=== PATIENT | female | born 1980 | race Caucasian/White ===

== ENCOUNTER 2019-12-08 18:31 | Emergency (ER) | payer BC, SELFPAY ==
--- NOTE | 2019-12-08 19:14 | ED.FEMALEGU ---
HPI - Female Genitourinary General Chief complaint: Urogenital-Female Stated complaint: Abdominal Pain Time Seen by Provider: 12/08/19 19:14 History of Present Illness HPI Narrative: patient presents with strong odor to urine. upper abdominal pressure no back or flank pain. No gross hematuria no vaginal discharge no concern for sti . Patient states she is been adjusting her diet lately and certain foods make her right upper quadrant abdominal pain worse. Patient states is been going on for the last month. Patient denies any pain at present. Patient denies any fever no diarrhea no constipation no nausea. MD elicited complaint: dysuria and UTI Related Data Home Medications Medication Instructions Recorded Confirmed Cymbalta 12/08/19 infliximab [Remicade] mg IV 12/08/19 levothyroxine 100 mcg PO DAILY 12/08/19 12/08/19 Allergies Allergy/AdvReac Type Severity Reaction Status Date / Time No Known Allergies Allergy Verified 12/08/19 19:33 Review of Systems Review of Systems: Narrative: CONSTITUTIONAL: Denies fever, chills, or sweats. EYES: Denies visual changes, redness, or discharge. ENT: Denies rhinorrhea, congestion, sore throat, or otalgia. CARDIOVASCULAR: Denies chest pain, palpitations, or edema. RESPIRATORY: Denies cough or dyspnea. GASTROINTESTINAL: Denies nausea, vomiting, or diarrhea. GENITOURINARY: Reports dysuria denies hematuria. SKIN: Denies rash or itching. MUSCULOSKELETAL: Denies back pain, joint pain, or myalgia. NEUROLOGIC: Denies headache, numbness, or weakness. PSYCHIATRIC: Denies anxiety or depression. [facility] Past Medical History Medical History Psoriatic arthritis Comments At time of signature, agree with nursing past medical, surgical, social and family history. There is no relevant family history pertinent to the presenting complaint Exam Narrative: Exam Narrative: GENERAL: Well-appearing, well-nourished, and in no acute distress. HEAD: Normocephalic, atraumatic. EYES: PERRLA and EOMI. ENT: Nares clear, no rhinorrhea or epistaxis. Mucous membranes moist. NECK: Supple. CHEST: Clear to auscultation. No respiratory distress. HEART: Regular rate and rhythm. No murmur heard. Normal peripheral pulses. ABDOMEN: Soft, nontender, nondistended, normal active bowel sounds. EXTREMITIES: Normal range of motion. No edema. SKIN: Warm, dry, no rash. NEURO: No focal deficits. Alert and oriented x3. [place] Coma Scale Eye Opening: Spontaneous 4 [place] Coma Scale Motor: Obeys Commands 6 [place] Coma Scale Verbal: Oriented 5 [place] Coma Scale Total 15 Course Vital Signs Vital signs: Vital Signs Temperature 36.8 C 12/08/19 19:15 Pulse Rate 69 12/08/19 19:15 Respiratory Rate 16 12/08/19 19:15 Blood Pressure 127/63 12/08/19 19:15 Pulse Oximetry 100 12/08/19 19:15 Temperature 36.8 C 12/08/19 19:15 Pulse Rate 69 12/08/19 19:15 Respiratory Rate 16 12/08/19 19:15 Blood Pressure 127/63 12/08/19 19:15 Pulse Oximetry 100 12/08/19 19:15 Critical dx considered and discussed with pt. Educated patient on red flag s/s and to go to ED if s/s occur. Discussed with pt when to return to [facility] or primary care provider. Pt gave verbal understanding, all questions were answered, and pt was agreeable to plan Patient politely declines transfer to ed at this time. Patient states she has no abdominal pain at present. Patient states if pain returns she will go to er for evaluation and treatment. Patietn states she will follow up with PCP as soon as possible for outpatient testing. MDM - Female Genitourinary Differential Diagnosis Differential diagnosis: Likely urinary tract infection, bacterial vaginosis, trichomoniasis, vaginitis, ruptured ovarian cyst, cyst of Bartholin's gland and cystitis Lab Data Labs: Urine Glucose Negative Reference Range: Negative Urine Bilirubin
[2019-12-08 19:15] VITALS: BP 127/63; PULSE 69; RESP 16; TEMP 36.8; O2SAT 100
== END 2019-12-08 19:40 | disposition home or self-care (01) ==
PROVIDERS: Emergency Provider Nurse Practitioner Family
DX: R10.11 Right upper quadrant pain (principal)
CPT/HCPCS: 81003; 87086; 99213; G0463

== ENCOUNTER 2020-01-25 18:56 | Emergency (ER) | payer BC, SELFPAY ==
[2020-01-25 19:03] VITALS: BP 120/66; PULSE 73; RESP 18; TEMP 37.3; O2SAT 100
--- NOTE | 2020-01-25 19:27 | ED.FEMALEGU ---
HPI - Female Genitourinary General Chief complaint: Urogenital-Female Stated complaint: UTI Time Seen by Provider: 01/25/20 19:27 Source: patient and RN notes reviewed History of Present Illness HPI Narrative: Patient is a 39-year-old female presents the urgent care with complaints of urinary frequency, burning, urgency. Patient states that started approximately 2 to 3 days ago and she does have a history of UTIs. Patient states that she has been taking Azo and Tylenol for her symptoms. Denies of any fever, nausea, vomiting, abdominal pain. No other acute complaints. No acute distress noted. Patient read the plan of care. Related Data Home Medications Medication Instructions Recorded Confirmed infliximab [Remicade] mg IV 12/08/19 leflunomide 10 mg PO DAILY 01/25/20 01/25/20 levothyroxine 100 mcg PO DAILY 01/25/20 01/25/20 levothyroxine 100 mcg PO DAILY 01/25/20 01/25/20 pantoprazole 40 mg PO HS 01/25/20 01/25/20 Allergies Allergy/AdvReac Type Severity Reaction Status Date / Time No Known Allergies Allergy Verified 01/25/20 19:31 Review of Systems Review of Systems: Narrative: CONSTITUTIONAL: Denies fever, chills, or sweats. EYES: Denies visual changes, redness, or discharge. ENT: Denies rhinorrhea, congestion, sore throat, or otalgia. CARDIOVASCULAR: Denies chest pain, palpitations, or edema. RESPIRATORY: Denies cough or dyspnea. GASTROINTESTINAL: Denies abdominal pain, nausea, vomiting, or diarrhea. GENITOURINARY: Reports of frequency, urgency, dysuria, intermittent suprapubic pressure SKIN: Denies rash or itching. MUSCULOSKELETAL: Denies back pain, joint pain, or myalgia. NEUROLOGIC: Denies headache, numbness, or weakness. All other systems reviewed are negative, except as documented in HPI. PMFSH Comments At the time of my signature, I reviewed and agree with the nursing past medical, surgical, social, and family history. There is no relevant family history pertinent to the patient complaint. Exam Narrative: Exam Narrative: GENERAL: This is a well-nourished, well-developed patient, in no apparent distress. HEAD: normocephalic, atraumatic. EYES: PERRL. Sclera clear/white. Vision is grossly intact. EARS: External ears normal NOSE: External nose normal with no obvious nasal discharge THROAT: Mucous membranes moist NECK: Neck supple CARDIOVASCULAR: Regular rate and rhythm without murmurs, gallops, or rubs. RESPIRATORY: Clear to auscultation. Breath sounds equal bilaterally. No wheezes, rales, or rhonchi. GASTROINTESTINAL: Abdomen soft, non-tender, nondistended. SKIN: warm, intact with no suspicious lesions or rash, good texture and turgor. NEURO: awake, alert, and oriented to person, place and time. There were no obvious focal neurologic abnormalities. EXTREMITIES: No clubbing, cyanosis, or edema. BACK: Negative CVA tenderness Course Vital Signs Vital signs: Vital Signs Temperature 99.2 F 01/25/20 19:03 Pulse Rate 73 01/25/20 19:03 Respiratory Rate 18 01/25/20 19:03 Blood Pressure 120/66 01/25/20 19:03 Pulse Oximetry 100 01/25/20 19:03 Temperature 99.2 F 01/25/20 19:03 Pulse Rate 73 01/25/20 19:03 Respiratory Rate 18 01/25/20 19:03 Blood Pressure 120/66 01/25/20 19:03 Pulse Oximetry 100 01/25/20 19:03 Reviewed MDM - Female Genitourinary MDM Narrative Medical decision making narrative: Reviewed lab results with the patient. She is aware that urine does not appear to be indicative for UTI at this time. We will culture the urine and call her if medication is necessary based on culture results. Advised the patient to continue using Azo if necessary. Use Tylenol as needed for pain. Increase water intake and avoid sugary and caffeinated drinks. Call the facility within 72 hours if you do not hear back regarding culture results. Follow-up with your PCP within 2 to 5 days or for worsening symptoms or failure to improve. Differential Diagnosis Differential diagnosis:
== END 2020-01-25 19:37 | disposition home or self-care (01) ==
PROVIDERS: Emergency Provider Nurse Practitioner Family; PCP Family Medicine
DX: R30.0 Dysuria (principal); K21.9 Gastro-esophageal reflux disease without esophagitis; L40.50 Arthropathic psoriasis, unspecified
CPT/HCPCS: 81003; 87077; 87086; 87088; 87186; 99213; G0463

== ENCOUNTER 2020-02-25 10:42 | Emergency (ER) | payer BC, SELFPAY ==
[2020-02-25 10:55] VITALS: BP 103/60; PULSE 74; RESP 20; TEMP 36.8; O2SAT 99
--- NOTE | 2020-02-25 11:16 | ED.GENADULT ---
HPI - General Adult General Chief complaint: Upper Respiratory Infection Stated complaint: fever/severe headache/body aches Time Seen by Provider: 02/25/20 11:17 Source: patient and RN notes reviewed Mode of arrival: ambulatory Limitations: no limitations History of Present Illness HPI narrative: This is a 39 years old female presented office for evaluation of possible sinus infection. She has been battling with sinus congestion off and on for the last week however she did not run a fever until last night. Fever went up to 100.3 this morning which she took Advil prior to arrival. Symptoms include head congestion, stuffy nose, postnasal drip, and feeling fatigued. Symptoms reminiscent her previous sinus infection. Denies exposures to sick contact or known contact with COVID people. She is on Remicade for her RA. She was a former smoker, quit 6 years ago she used to smoke 1 pack. She is a line construction supervisor. Related Data Home Medications Medication Instructions Recorded Confirmed infliximab [Remicade] mg IV 12/08/19 leflunomide 10 mg PO DAILY 01/25/20 02/25/20 levothyroxine 100 mcg PO DAILY 01/25/20 02/25/20 pantoprazole 40 mg PO HS 01/25/20 02/25/20 cetirizine [Zyrtec] 10 mg PO DAILY 02/25/20 02/25/20 Allergies Allergy/AdvReac Type Severity Reaction Status Date / Time No Known Allergies Allergy Verified 01/25/20 19:31 Review of Systems Review of Systems: Narrative: CONSTITUTIONAL: Reports fever, bodyache EYES: Denies visual changes ENT: Reports congestion, sore throat. Denies otalgia. CARDIOVASCULAR: Denies chest pain. RESPIRATORY: Denies dyspnea, wheezing. Reports cough GASTROINTESTINAL: Denies abdominal pain, nausea, vomiting GENITOURINARY: Denies urinary symptoms SKIN: Denies rash MUSCULOSKELETAL: Denies acute back pain NEUROLOGIC: Denies lightheaded PMFSH Past Medical History Medical History Anxiety Endometriosis Psoriatic arthritis Surgical History Surgical History Hx of oophorectomy 2010 Hx of spinal fusion L5-s1 in 10/2017 Family History Family History Other Diabetes mellitus Heart disease Social History Social History (Updated 02/25/20 @ 11:29 by STONE Chalres) Social History: used to smoke 1pack Smoking status: Former smoker Tobacco type: cigarettes Second hand tobacco smoke exposure: Yes Comments At time of signature, I agree with nursing past medical, surgical, social and family history. There is no relevant family history pertinent to the presenting complaint. Exam Narrative: Exam Narrative: GENERAL: This is a well-nourished, well-developed patient, in no apparent distress. EYES: PERRL. Sclera clear/white. Vision is grossly intact. EARS: External ears normal, auditory canals clear and without drainage, TMs normal without perforation, however there are fluid bubbles in both TM. Hearing grossly intact. NOSE: External nose normal with no obvious nasal discharge, nares without redness, no rhinorrhea. THROAT: Mucous membranes moist, posterior pharynx slight pink with drainage. Sinus tenderness to palpation NECK: Neck supple, non-tender without lymphadenopathy, masses or thyromegaly. CARDIOVASCULAR: Regular rate and rhythm without murmurs, gallops, or rubs. RESPIRATORY: Clear to auscultation. Breath sounds equal bilaterally. No wheezes, rales, or rhonchi. GASTROINTESTINAL: Abdomen soft, non-tender, nondistended. Bowel sounds are active. No hepato-splenomegaly, or palpable masses. No guarding. SKIN: warm, intact with no suspicious lesions or rash, good texture and turgor. NEURO: awake, alert, and oriented to person, place and time. There were no obvious focal neurologic abnormalities. Steady gait [place] Coma Scale Eye Opening: Spontaneous 4 [place] Coma Scale Motor: Obeys Commands 6 [place]
== END 2020-02-25 11:30 | disposition home or self-care (01) ==
PROVIDERS: Emergency Provider Nurse Practitioner; PCP Family Medicine
DX: J06.9 Acute upper respiratory infection, unspecified (principal); J01.80 Other acute sinusitis; B96.89 Other specified bacterial agents as the cause of diseases classified elsewhere; J00 Acute nasopharyngitis [common cold]; Z87.891 Personal history of nicotine dependence
CPT/HCPCS: 99213; G0463

== ENCOUNTER 2020-04-03 19:19 | Emergency (ER) | payer BC, SELFPAY ==
[2020-04-03 19:25] VITALS: BP 120/68; PULSE 59; RESP 16; TEMP 36.7; O2SAT 100
--- NOTE | 2020-04-03 19:34 | ED.BACK ---
HPI - Back Pain/Injury General Chief Complaint: Back Pain/Injury Stated Complaint: back pain Time Seen by Provider: 04/03/20 19:35 Source: patient and RN notes reviewed History of Present Illness HPI Narrative: Patient is a 39-year-old female who presents the urgent care with complaints of acute on chronic back pain. Patient states that she has chronic back pain and 2 spinal fusions. Patient states that she has been doing really good for a long time and stopped her steroid injections . Patient states that she has spoke with her spinal doctor regarding possible restart of the steroid injections. 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 Patient denies any known fall trauma or new injury. Patient denies any urinary symptoms. States that most of the pain is just in the lumbar region but does have intermittent shooting pains down bilateral legs. Patient denies any loss of bowel or bladder. Patient has been using Tylenol and Advil without much relief. No other acute complaints. No acute distress noted. Patient read the plan of care. Related Data Home Medications Medication Instructions Recorded Confirmed infliximab [Remicade] mg IV 12/08/19 leflunomide 10 mg PO DAILY 01/25/20 02/25/20 levothyroxine 100 mcg PO DAILY 01/25/20 04/03/20 Allergies Allergy/AdvReac Type Severity Reaction Status Date / Time No Known Allergies Allergy Verified 01/25/20 19:31 Review of Systems Review of Systems: Narrative: CONSTITUTIONAL: Denies fever, chills, or sweats. EYES: Denies visual changes, redness, or discharge. ENT: Denies rhinorrhea, congestion, sore throat, or otalgia. CARDIOVASCULAR: Denies chest pain, palpitations, or edema. RESPIRATORY: Denies cough or dyspnea. GASTROINTESTINAL: Denies abdominal pain, nausea, vomiting, or diarrhea. GENITOURINARY: Denies dysuria or hematuria. SKIN: Denies rash or itching. MUSCULOSKELETAL: Reports of low back pain NEUROLOGIC: Denies headache, numbness, or weakness. All other systems reviewed are negative, except as documented in HPI. [facility] Social History Social History (Updated 02/25/20 @ 11:29 by STONE Charles) Social History: used to smoke 1pack Smoking status: Former smoker Tobacco type: cigarettes Second hand tobacco smoke exposure: Yes Comments At the time of my signature, I reviewed and agree with the nursing past medical, surgical, social, and family history. There is no relevant family history pertinent to the patient complaint. Exam Narrative: Exam Narrative: GENERAL: This is a well-nourished, well-developed patient, in no apparent distress. HEAD: normocephalic, atraumatic. EYES: PERRL. Sclera clear/white. Vision is grossly intact. EARS: External ears normal NOSE: External nose normal with no obvious nasal discharge, nares without redness, no rhinorrhea. THROAT: Mucous membranes moist NECK: Neck supple SKIN: warm, intact with no suspicious lesions or rash, good texture and turgor. NEURO: awake, alert, and oriented to person, place and time. There were no obvious focal neurologic abnormalities. EXTREMITIES: No clubbing, cyanosis, or edema. BACK: Moderate diffuse lumbar tenderness with negative bilateral SLE Course Vital Signs Vital signs: Vital Signs Temperature 98.1 F 04/03/20 19:25 Pulse Rate 59 L 04/03/20 19:25 Respiratory Rate 16 04/03/20 19:25 Blood Pressure 120/68 04/03/20 19:25 Pulse Oximetry 100 04/03/20 19:25 Temperature 98.1 F 04/03/20 19:25 Pulse Rate 59 L 04/03/20 19:25 Respiratory Rate 16 04/03/20 19:25 Blood Pressure 120/68 04/03/20 19:25 Pulse Oximetry 100 04/03/20 19:25 Reviewed MDM - Back Pain/Injury MDM Narrative Medical decision making narrative: Advised the patient to complete steroid regimen as prescribed. The taper will be longer than usual considering the chronic back pain. Make sure to eat and drink with the medication.
== END 2020-04-03 19:49 | disposition home or self-care (01) ==
PROVIDERS: Emergency Provider Nurse Practitioner Family; PCP Family Medicine
DX: M54.5 Low back pain (principal); G89.29 Other chronic pain; Z98.1 Arthrodesis status; Z87.891 Personal history of nicotine dependence
CPT/HCPCS: 99213; G0463

== ENCOUNTER 2021-01-13 10:03 | Emergency (ER) | payer BC, SELFPAY ==
--- NOTE | ~2021-01-13 | XR_ITS ---
EXAMINATION: [id number] DATE: 01/13/2021 11:10 INDICATION: Neck pain. TECHNIQUE: 4 views of cervical spine were obtained. COMPARISON: None. FINDINGS: There is kyphosis and 10 degrees dextroscoliosis of cervical spine. Vertebral body heights and intervertebral disc heights are normal. There is mild facet joint osteoarthritis at C7-T1. The un covertebral joints are normal. No central canal stenosis or prevertebral soft tissue swelling. IMPRESSION: 1. Kyphosis and dextroscoliosis of cervical spine. Reviewed, dictated and finalized at location A.
--- NOTE | ~2021-01-13 | XR_ITS ---
EXAMINATION: XR thoracic spine min 4V DATE: 01/13/2021 11:12 INDICATION: Thoracic back pain. TECHNIQUE: 3 views of thoracic spine on 4 radiographs were obtained. COMPARISON: Chest 2 views 11/25/2016 FINDINGS: There is 6 degrees levocurvature of upper thoracic spine. Vertebral body heights and interv ertebral disc heights are normal. There are endplate osteophytes at a few levels in thoracolumbar spi ne. IMPRESSION: 1. Mild thoracolumbar spondylosis. Reviewed, dictated and finalized at location A.
[2021-01-13 10:25] VITALS: BP 110/67; PULSE 63; RESP 18; TEMP 36.9; O2SAT 100
--- NOTE | 2021-01-13 10:26 | ED.GENADULT ---
HPI - General Adult General Chief complaint: Back Pain/Injury Stated complaint: shoulder/neck pain Time Seen by Provider: 01/13/21 10:26 Source: patient Mode of arrival: ambulatory Limitations: no limitations History of Present Illness HPI narrative: 40-year-old female patient presents to the [facility] with complaints of neck pain and right shoulder pain for the past 2 months. Patient has had history a spinal fusion from L5-S1 in the past. Patient denies any specific injury to the neck she is aware of. Patient states it started at the ball of the neck and now has radiated to the right shoulder. Patient states last night she noticed that her pinky ring finger middle finger went numb a couple times while she slept. Patient states she has been taking Tylenol, ibuprofen and naproxen for her pain which really has not been helping. Patient states she has also been trying to do some stretching exercises which has not been helping. Patient noticed that she has had some limitation to moving of her neck she states that it mostly hurts when looking up as well as looking down. Patient does have a history of psoriatic arthritis and has been off of her medication due to the fact that she lost her health insurance coverage. Related Data Home Medications Medication Instructions Recorded Confirmed gabapentin 300 mg PO DAILY 01/13/21 01/13/21 Allergies Allergy/AdvReac Type Severity Reaction Status Date / Time No Known Allergies Allergy Verified 01/13/21 10:29 Review of Systems Review of Systems: Narrative: CONSTITUTIONAL: Denies fever, chills, or sweats. EYES: Denies visual changes, redness, or discharge. ENT: Denies rhinorrhea, congestion, sore throat, or otalgia. CARDIOVASCULAR: Denies chest pain, palpitations, or edema. RESPIRATORY: Denies cough or dyspnea. GASTROINTESTINAL: Denies abdominal pain, nausea, vomiting, or diarrhea. GENITOURINARY: Denies dysuria or hematuria. SKIN: Denies rash or itching. MUSCULOSKELETAL: Denies back pain, joint pain, or myalgia. Positive neck and right shoulder pain x2 months NEUROLOGIC: Denies headache, numbness, or weakness. PSYCHIATRIC: Denies anxiety or depression. 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 Uterine ablation 2017 Psoriatic arthritis Surgical History Surgical History (Updated 01/13/21 @ 10:29 by STONE Jamil) History of orthopedic surgery L5-S1 fusion failed 06/2016, revision of L5-S1 fusion surgery 10/2017 Hx of oophorectomy 2010 Hx of spinal fusion L5-s1 in 10/2017 Family History Family History Other Diabetes mellitus Heart disease Social History Social History Social History: used to smoke 1pack Smoking status: Former smoker Tobacco type: cigarettes Second hand tobacco smoke exposure: Yes Comments At the time of my signature I agree with nursing past medical history, surgical, social, and family history. There is no relevant family history pertinent to the presenting complaint. Exam Narrative: Exam Narrative: GENERAL: Well-appearing, well-nourished, and in no acute distress. HEAD: Normocephalic, atraumatic. EYES: PERRLA and EOMI. ENT: Nares clear, no rhinorrhea or epistaxis. Mucous membranes moist. NECK: Supple, no lymphadenopathy. No surface trauma, no soft tissue or muscle tenderness or spasm noted. Trachea midline. No subq emphysema or crepitus. bony tenderness noted at the C6-and extending the neck. Only minimal discomfort with rotation to the left and right. Patient does have pain when, normal flexion, extension. CHEST: Clear to auscultation. No respiratory distress. HEART: Regular rate and rhythm. No murmur heard. Normal peripheral pulses. ABDOMEN: Soft, nontender, nondistended, n
== END 2021-01-13 11:33 | disposition home or self-care (01) ==
PROVIDERS: Emergency Provider Nurse Practitioner Family; PCP Family Medicine
DX: M47.812 Spondylosis without myelopathy or radiculopathy, cervical region (principal); Z87.891 Personal history of nicotine dependence; N80.9 Endometriosis, unspecified
CPT/HCPCS: 72040; 72074; 99213; G0463

== ENCOUNTER 2021-08-15 19:14 | Emergency (ER) | payer BC, SELFPAY ==
[2021-08-15 19:19] VITALS: BP 114/70; PULSE 70; RESP 16; TEMP 37; O2SAT 100
--- NOTE | 2021-08-15 19:44 | ED.UPPEXIN ---
HPI - Extremity Injury (Upper) General Chief Complaint: Wound/Laceration Stated Complaint: pressure to left finger Time Seen by Provider: 08/15/21 19:20 Source: patient, family () and RN notes reviewed Mode of arrival: ambulatory Limitations: no limitations History of Present Illness HPI narrative: 40-year-old female presents to the [facility] with concerns over increased pain swelling to the left distal aspect middle finger. States she closed the finger in a door yesterday. [facility] yesterday stitches were placed told to follow-up with hand specialist. Saw the hand surgeon today at [facility], since seeing the hand specialist she has had increased pain, swelling. Was told to follow-up with him in 1 week. Patient reports that when she saw the hand specialist he only spent 2 minutes with me. Wrapped her finger very tightly and states the pain increased at that time. Was told to pour peroxide over her wound twice a day. Was prescribed cephalexin 1000 bid. Has decreased range of motion at the DIP and PIP joint due to swelling Related Data Home Medications Medication Instructions Recorded Confirmed cephalexin HCl 500 mg PO Q12H 08/15/21 08/15/21 hydrocodone-acetaminophen [[place]] 1 tablet PO Q4H PRN 08/15/21 08/15/21 Allergies Allergy/AdvReac Type Severity Reaction Status Date / Time No Known Allergies Allergy Verified 08/15/21 19:36 Review of Systems Review of Systems: All systems reviewed & are unremarkable except as noted in HPI and below Constitutional: Constitutional: Reports no additional constitutional complaints, Denies chills and Denies fever(s) Eyes: Eyes: Reports no additional eye complaints ENT: Reports system reviewed and no additional complaints, except as documented Cardiovascular: Cardiovascular: Reports no additional cardiovascular complaints Respiratory: Respiratory: Reports no additional respiratory complaints Gastrointestinal: Gastrointestinal: Reports no additional gastrointestinal complaints Genitourinary: Genitourinary: Reports no additional female genitourinary complaints Musculoskeletal: Musculoskeletal: Reports as per HPI Integumentary/Breasts: Skin/Breast: Reports as per HPI (Sutures wound left middle finger distal aspect) Neurologic: Reports system reviewed and no additional complaints, except as documented Psychiatric: Psychiatric: Reports no additional psychiatric complaints Allergic/Immunologic: Allergic/Immunologic: Reports no additional allergic/immunologic complaints [facility] Past Medical History Medical History (Updated 08/15/21 @ 19:48 by Carmel Wilson) Abnormal uterine bleeding Anxiety Endometriosis 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 There is no relevant family history pertinent to the patient complaint. Exam Const: General: healthy appearing and no acute distress Nutritional Appearance: well nourished Orientation/consciousness: patient oriented x3 Limitations: no limitations HENMT: Head: normal to inspection Neck: Neck: normal visual inspection, no lymphadenopathy and no meningeal signs Chest: Chest palpation & inspection: normal inspection of the
== END 2021-08-15 19:55 | disposition home or self-care (01) ==
PROVIDERS: Emergency Provider Nurse Practitioner; PCP Family Medicine
DX: M79.645 Pain in left finger(s) (principal); N80.9 Endometriosis, unspecified; L40.50 Arthropathic psoriasis, unspecified
CPT/HCPCS: 99212; G0463

== ENCOUNTER 2021-08-28 17:34 | Emergency (ER) | payer BC, SELFPAY ==
--- NOTE | ~2021-08-28 | CT_ITS ---
EXAMINATION: CT abdomen pelvis w con DATE: 08/28/2021 21:10 INDICATION: Right upper quadrant pain for months TECHNIQUE: Computed tomography (CT) of the abdomen and pelvis was performed with 100 cc Omnipaque 350 intravenous contrast. The dose-length product was 228.97 mGy-cm. Automated exposure control and iter ative reconstruction technique were employed. COMPARISON: CT dated 05/08/2014. FINDINGS: Lung bases are unremarkable. Heart size normal. No significant pleural or pericardial effus ion. There is a large amount of retained fecal material throughout the colon. Nonobstructive bowel ga s pattern. There is an involuting corpus luteal cyst of the right ovary. Fatty infiltration of the liver. Gallbladder is present. The spleen, pancreas, adrenal glands and kid neys are unremarkable. Gallbladder is present. No significant vascular abnormality. No lymphadenopath y. No free air. There are surgical changes consistent with fusion at L5-S1 anteriorly with prosthetic disc device at this level. There are L5 laminectomy changes. IMPRESSION: 1. No acute abdominal abnormality. Reviewed, dictated and finalized at location A.
[2021-08-28 17:38] VITALS: BP 116/67; PULSE 78; RESP 18; TEMP 36.3; O2SAT 99
[2021-08-28 18:33] LABS: Basophils Absolute Auto 0.1 K/mm3 (0.0-0.1); Basophils Percent Auto 0.5 % (0.2-1.2); Eosinophils Absolute Auto 0.3 K/mm3 (0-0.3); Eosinophils Percent Auto 3.2 % (0-4.4); Hematocrit 42.2 % (37.0-47.0); Hemoglobin 14.2 g/dL (12.0-15.0); Immature Granulocyte Absolute 0.02 K/mm3 (0.00-0.031); Immature Granulocyte Percent A 0.2 % (0-0.5); Lymphocytes Absolute Auto 2.85 K/mm3 (0.9-3.2); Lymphocytes Percent Auto 31.1 % (18.3-44.2); Mean Corpuscular HGB Conc 33.6 g/dl (32-36); Mean Corpuscular Hemoglobin 30.3 pg (26-34); Mean Platelet Volume 10.5 fl (7.4-10.4); Monocytes Absolute Auto 0.7 K/mm3 (0.1-0.6); Monocytes Percent Auto 7.7 % (2.6-8.5); Neutrophils Absolute Auto 5.2 K/mm3 (1.3-6.7); Neutrophils Percent Auto 57.3 % (45.5-73.1); Platelet Count Result 253 k/mm3 (150-375); Red Blood Count 4.69 M/mm3 (4.2-5.4); Red Cell Distribution Width 12.7 % (11.5-14.5); White Blood Count 9.2 K/mm3 (4.5-10.0)
[2021-08-28 18:39] LABS: Add Urine Microscopic? YES; Appearance Urine Clear (Clear); Bacteria Urine Trace /hpf; Bilirubin Urine Negative (Negative); Blood Urine Negative (Negative); Color Urine Straw (Yellow); Glucose Urine UA Negative (Negative); Ketones Urine Negative (Negative); Leukocyte Esterase Ur 1+ LEU/UL (Negative); Mucus Urine Rare /lpf; Nitrate Urine Negative (Negative); Protein Urine Negative (Negative); Squamous Epithelial Cell Urine Few /hpf (Few); Urobilinogen Urine Negative mg/dL (<2.0); WBC Urine 0-3 /hpf
[2021-08-28 18:43] LABS: Specific Grav Ur 1.004 (1.001-1.035)
[2021-08-28 19:15] LABS: Alanine Aminotransferase 14 U/L (4-35); Albumin Level 4.6 g/dL (3.5-5.1); Alkaline Phosphatase 49 U/L (38-126); Anion Gap 10 mmol/L (8-16); Aspartate Amino Transferase 29 U/L (14-36); Bilirubin,Total 0.2 mg/dL (0.2-1.3); Blood Urea Nitrogen 11 mg/dL (7-17); Calcium 9.4 mg/dL (8.4-10.2); Carbon Dioxide 24 mmol/L (22-30); Chloride 105 mmol/L (98-107); Estimated CRCL calculation 62 ml/min; Estimated Glomerular Filt Rate > 60; Glucose 89 mg/dL (65-110); Lipase 99 U/L (23-300); Potassium 3.7 mmol/L (3.4-5.0); Sodium 139 mmol/L (137-145)
--- NOTE | 2021-08-28 21:40 | ED.ABDPAIN ---
HPI - Abdominal Pain General Chief Complaint: Abdominal Pain Stated Complaint: abdominal pain Time Seen by Provider: 08/28/21 20:45 Source: patient Mode of arrival: ambulatory Limitations: no limitations History of Present Illness HPI narrative: 41-year-old with a history of recurrent abdominal pain, multiple back surgeries here with complaints of right-sided upper abdominal pain radiating into her back since this morning. Patient states that she had severe pain earlier however now pain has eased up. She denies any nausea or vomiting. No history of fever or chills. MD elicited complaint: abdominal pain Pertinent past history: none Onset (ago): day(s) (1) Pain Consistency: intermittent Location: RUQ Severity: moderate Quality: aching Radiation: RUQ Migration to: no migration Exacerbating factors: nothing Relieving factors: nothing Related Data Patient : No Allergies Allergy/AdvReac Type Severity Reaction Status Date / Time No Known Allergies Allergy Verified 08/28/21 20:27 Review of Systems Review of Systems: All systems reviewed & are unremarkable except as noted in HPI and below Constitutional: Constitutional: Reports no additional constitutional complaints Eyes: Eyes: Reports no additional eye complaints ENT: Reports system reviewed and no additional complaints, except as documented Cardiovascular: Cardiovascular: Reports no additional cardiovascular complaints Respiratory: Respiratory: Reports no additional respiratory complaints Gastrointestinal: Gastrointestinal: Reports as per HPI Musculoskeletal: Musculoskeletal: Reports no additional musculoskeletal complaints Neurologic: Reports system reviewed and no additional complaints, except as documented PMFSH Past Medical History Medical History Abnormal uterine bleeding Anxiety Endometriosis 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 HEAD: Normocephalic, atraumatic. EYES: PERRLA and EOMI.. NECK: Supple. CHEST: Clear to auscultation. No respiratory distress. HEART: Regular rate and rhythm. No murmur heard. Normal peripheral pulses. ABDOMEN: Soft, mild tenderness in the RUQ nondistended. EXTREMITIES: Normal range of motion. No edema. SKIN: Warm, dry, no rash. NEURO: No focal deficits. Alert and oriented x3. PSYCH: Normal mood and affect. Course Course Emergency Course: Patient comfortably lying on the stretcher in no discomfort. Informed her about her lab work, CT findings. Advised her to take pain medication as prescribed, follow-up with her primary doctor. Vital Signs Vital signs: Vital Signs Temperature 36.3 C L 08/28/21 17:38 Pulse Rate 78 08/28/21 17:38 Respiratory Rate 18 08/28/21 17:38 Blood Pressure 116/67 08/28/21 17:38 Pulse Oximetry 99 08/28/21 17:38 Temperature 36.3 C L 08/28/21 17:38 Pulse Rate 78 08/28/21 17:38 Respiratory Rate 18 08/28/21 17:38 Blood Pressure 116/67 08/28/21 17:38 Pulse Oximetry 99 08/28/21 17:38 MDM - Abdominal Pain Differential Diagnosis Differential diagnosis: Likely abdominal pain, calculus of kidney, gastroenteritis and other (Cholecystitis) Lab Data Result diagrams: 08/28/21 18:19
== END 2021-08-28 21:55 | disposition home or self-care (01) ==
PROVIDERS: Emergency Provider Family Medicine
DX: R10.11 Right upper quadrant pain (principal); F41.9 Anxiety disorder, unspecified
CPT/HCPCS: 36415; 74177; 80053; 81001; 81025; 83690; 85025; 99284; Q9967

== ENCOUNTER 2022-01-19 17:32 | Emergency (ER) | payer BC, SELFPAY ==
[2022-01-19 17:52] VITALS: BP 117/56; PULSE 82; RESP 18; TEMP 37.3; O2SAT 100
--- NOTE | 2022-01-19 19:08 | ED.GENADULT ---
HPI - General Adult General Chief complaint: Upper Respiratory Infection Stated complaint: ear and sinus infection Source: patient Mode of arrival: ambulatory Limitations: no limitations History of Present Illness HPI narrative: Patient presents for evaluation of upper respiratory symptoms for the last 2 and half weeks. Symptoms include sinus congestion, drainage that is mucopurulent in appearance, otalgia, nausea and fever. No chills, vomiting, cough, shortness of breath or diarrhea. She has tried several therapies including flonase, mucinex and allergy medication without much improvement. No recent sick contacts to her knowledge. She has received her COVID vaccination. In the past she has received augmentin and doxycycline. Related Data Allergies Allergy/AdvReac Type Severity Reaction Status Date / Time No Known Allergies Allergy Verified 08/28/21 20:27 Review of Systems Review of Systems: CONSTITUTIONAL: Reports fatigue and fever. Denies chills or sweats EYES: Denies visual changes, redness, or discharge. ENT: Reports sinus congestion and mucopurulent discharge from the nares. CARDIOVASCULAR: Denies chest pain, palpitations, or edema. RESPIRATORY: Denies cough or dyspnea. GASTROINTESTINAL:Reports nausea. Denies abdominal pain, vomiting, or diarrhea. GENITOURINARY: Denies dysuria or hematuria. SKIN: Denies rash or itching. MUSCULOSKELETAL: Denies back pain, joint pain, or myalgia. NEUROLOGIC: Denies headache, numbness, dizziness, or weakness. PSYCHIATRIC: Denies anxiety or depression. 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 Uterine ablation 2016 Psoriatic arthritis Surgical History Surgical History History of orthopedic surgery L5-S1 fusion failed 06/2016, revision of L5-S1 fusion surgery 10/2017 Hx of oophorectomy 2010 Hx of spinal fusion L5-s1 in 10/2017 Family History Family History Other Diabetes mellitus Heart disease Social History Social History Social History: used to smoke 1pack Smoking status: Former smoker Tobacco type: cigarettes Second hand tobacco smoke exposure: Yes Substance use: never Gender identity (if verbalized by the patient): Female Sexual Orientation (if Verbalized by the Patient): Straight or Heterosexual Spiritual care concerns: No Exam Narrative: GENERAL: Well-appearing, well-nourished, and in no acute distress. HEAD: Normocephalic, atraumatic. EYES: PERRLA and EOMI. ENT: Nares clear, no rhinorrhea or epistaxis. Mucous membranes moist. Oropharynx without tonsillar hypertrophy exudate or other lesions. Mild posterior pharyngeal erythema. Bilateral TMs mildly erythematous. Maxillary sinus tenderness present bilaterally NECK: Supple. No adenopathy or masses. No carotid bruits or JVD CHEST: Clear to auscultation. No respiratory distress. No wheezes rales or rhonchi HEART: Regular rate and rhythm. No murmur heard. Normal peripheral pulses. ABDOMEN: Soft, nontender, nondistended, normal active bowel sounds. EXTREMITIES: Normal range of motion. No edema. SKIN: Warm, dry, no rash. NEURO: No focal deficits. Alert and oriented x3. PSYCH: Normal mood and affect. Course Course Emergency Course: This is a 41-year-old female that presented with complaints of sinus congestion and drainage. Strep and influenza were negative. She has no cough warranting CXR. Exam is consistent with ABRS based on duration of time with which she has experienced symptoms, mucopurulent drainage from nares and fever. Will treat with augmentin. She should follow up outpatient for further evaluation and treatment and return for worsening symptoms. Pt in ag
== END 2022-01-19 18:34 | disposition home or self-care (01) ==
PROVIDERS: Emergency Provider Nurse Practitioner; PCP Family Medicine
DX: J32.9 Chronic sinusitis, unspecified (principal); N80.9 Endometriosis, unspecified; L40.50 Arthropathic psoriasis, unspecified; Z87.891 Personal history of nicotine dependence
CPT/HCPCS: 87081; 87804; 87880; 99213; G0463

== ENCOUNTER 2022-04-10 10:23 | Emergency (ER) | payer BC, SELFPAY ==
[2022-04-10 10:31] VITALS: BP 107/61; PULSE 85; RESP 16; TEMP 37.2; O2SAT 100
--- NOTE | 2022-04-10 10:38 | ED.URI ---
HPI - URI/Sore Throat General Chief Complaint: Upper Respiratory Infection Stated Complaint: fever headache body ache sore throat Time Seen by Provider: 04/10/22 10:35 Source: patient Mode of arrival: ambulatory Limitations: no limitations History of Present Illness HPI Narrative: Ms. Lopez is a 41-year-old female patient presenting to the clinic today with complaints of fever, cough, headache, sore throat, body aches, and congestion x2 to 3 days She reports she may have had third-alliance party exposure to someone with COVID. She reports that the cough is nonproductive. She denies any shortness of breath or chest pain. MD elicited complaint: fever, cough, sore throat, rhinorrhea, nasal congestion and other (Headache) Related Data Home Medications Medication Instructions Recorded Confirmed levothyroxine 100 mcg tablet 100 mcg PO DAILY 04/10/22 04/10/22 Allergies Allergy/AdvReac Type Severity Reaction Status Date / Time No Known Allergies Allergy Verified 04/10/22 10:40 Review of Systems Review of Systems: Pertinent positives per HPI. Patient denies any rash, visual changes, dizziness, shortness of breath, chest pain, palpitations, nausea, vomiting, diarrhea, constipation, abdominal pain, or any urinary issues. 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 Uterine ablation 2016 Psoriatic arthritis Surgical History Surgical History History of orthopedic surgery L5-S1 fusion failed 06/2016, revision of L5-S1 fusion surgery 10/2017 Hx of oophorectomy 2010 Hx of spinal fusion L5-s1 in 10/2017 Family History Family History Other Diabetes mellitus Heart disease Social History Social History Social History: used to smoke 1pack Smoking status: Former smoker Tobacco type: cigarettes Second hand tobacco smoke exposure: Yes Substance use: never Gender identity (if verbalized by the patient): Female Sexual Orientation (if Verbalized by the Patient): Straight or Heterosexual Spiritual care concerns: No Comments At the time of my signature, I reviewed and agree with the nursing past medical, surgical, social, and family history. There is no relevant family history pertinent to the patient complaint. Exam Narrative: General: Well-developed, well nourished, in no apparent distress Head: Normocephalic, atraumatic Eyes: Pupils equally round and reactive to light bilaterally, EOM intact, sclera and conjunctive clear, no discharge, lids normal Ears: TMs intact and clear, ear canals clear, no drainage, grossly hearing normal. Nose: Nares patent, no discharge, no inflammation, no sinus tenderness. Mouth: Oral pharynx without lesions or masses, good dentition, MMM. Neck: Supple, trachea midline, no enlargement of anterior or posterior cervical nodes, no thyroid masses or goiter palpable. Cardio: Regular rate and rhythm, s1 and s2 normal, no murmur appreciated. Resp: Clear to auscultation bilaterally, no rhonchi, rales, wheezing or rubs Course Course Emergency Course: Portions of this record may have been created with voice recognition software. Level of Care: Express Care Visit Vital Signs Vital signs: Vital Signs Temperature 37.2 C 04/10/22 10:31 Pulse Rate 85 04/10/22 10:31 Respiratory Rate 16 04/10/22 10:31 Blood Pressure 107/61 04/10/22 10:31 Pulse Oximetry 100 04/10/22 10:31 Oxygen Delivery Room Air 04/10/22 10:31 Temperature 37.2 C 04/10/22 10:31 Pulse Rate 85 04/10/22 10:31 Respiratory Rate 16 04/10/22 10:31 Blood Pressure 107/61 04/10/22 10:31 Pulse Oximetry 100 04/10/22 10:31 Oxygen Delivery Room Air 04/10/22 10:3
== END 2022-04-10 11:07 | disposition home or self-care (01) ==
PROVIDERS: Emergency Provider Nurse Practitioner Family; PCP Family Medicine
DX: B34.9 Viral infection, unspecified (principal); J06.9 Acute upper respiratory infection, unspecified; Z20.822 Contact with and (suspected) exposure to COVID-19; Z87.891 Personal history of nicotine dependence; N80.9 Endometriosis, unspecified; L40.50 Arthropathic psoriasis, unspecified
CPT/HCPCS: 87081; 87426; 87804; 87880; 99213; C9803; G0463

== ENCOUNTER 2022-06-05 17:53 | Emergency (ER) | payer BC, SELFPAY ==
[2022-06-05 18:00] VITALS: BP 120/62; PULSE 66; RESP 16; TEMP 36.7; O2SAT 100
--- NOTE | 2022-06-05 18:13 | ED.FEMALEGU ---
HPI - Female Genitourinary General Chief complaint: Urogenital-Female Stated complaint: Urinary Problem Time Seen by Provider: 06/05/22 18:10 Source: patient, RN notes reviewed and old records reviewed Mode of arrival: ambulatory Limitations: no limitations History of Present Illness HPI Narrative: 41 year old female who presents to [facility] care with complaints of frequency, retention feeling, and right flank pain since yesterday. Patient just completed Macrobid antibiotic today. Patient reports that she has had kidney stones in past and she has been able to pass them. Patient denies any visualized blood in urine or with wiping states no pain radiating to abdomen from back. She reports that she is drinking large amounts of water. Patient denies any fevers, chills, or sweats denies any nausea or vomiting. MD elicited complaint: other (feeling of urinary retention, urinary frequency and right flank pain) Pertinent past history: other (kidney stones reported in past,UTIs) Onset (ago): day(s) (1) Related Data Home Medications Medication Instructions Recorded Confirmed levothyroxine 100 mcg tablet 100 mcg PO DAILY 04/10/22 04/10/22 Allergies Allergy/AdvReac Type Severity Reaction Status Date / Time No Known Allergies Allergy Verified 04/10/22 10:40 Review of Systems Review of Systems: CONSTITUTIONAL: Denies fever, chills, or sweats. EYES: Denies visual changes, redness, or discharge. ENT: Denies rhinorrhea, congestion, sore throat, or otalgia. CARDIOVASCULAR: Denies chest pain, palpitations, or edema. RESPIRATORY: Denies cough or dyspnea. GASTROINTESTINAL: Denies abdominal pain, nausea, vomiting, or diarrhea. GENITOURINARY: Denies dysuria or hematuria, reports frequency and feelings of retention with right flank pain SKIN: Denies rash or itching. MUSCULOSKELETAL: back pain, joint pain, or myalgia. NEUROLOGIC: chronic back pain, no numbness, or weakness. PSYCHIATRIC: Denies anxiety or depression. 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 Uterine ablation 2017 Psoriatic arthritis Surgical History Surgical History History of orthopedic surgery L5-S1 fusion failed 06/2016, revision of L5-S1 fusion surgery 10/2017 Hx of oophorectomy 2010 Hx of spinal fusion L5-s1 in 10/2017 Family History Family History Other Diabetes mellitus Heart disease Social History Social History (Updated 06/07/22 @ 11:01 by Malathi Crawley NP) Social History: used to smoke 1pack Smoking status: Former smoker Tobacco type: cigarettes Second hand tobacco smoke exposure: Yes Substance use: never Living arrangements: with family Gender identity (if verbalized by the patient): Female Sexual Orientation (if Verbalized by the Patient): Straight or Heterosexual Spiritual care concerns: No Comments At time of signature, agree with nursing past medical, surgical, social and family history. There is no relevant family history pertinent to the presenting complaint Exam Narrative: GENERAL: Well-appearing, well-nourished, and in no acute distress. HEAD: Normocephalic, atraumatic. EYES: PERRLA and EOMI. ENT: Nares clear, no rhinorrhea or epistaxis. Mucous membranes moist.TM's normal throat pink with no lesions or tonsil swelling. NECK: Supple.no lymphadenopathy CHEST: Clear to auscultation. No respiratory distress.SAO2 100% on room air HEART: Regular rate and rhythm. No murmur heard. Normal peripheral pulses. ABDOMEN: Soft, nontender, nondistended, normal active bowel sounds. no suprapubic pain, positive for right flank pain. EXTREMITIES: Normal range of motion. No edema. SKIN: Warm, dry, no rash. NEUR
== END 2022-06-05 18:36 | disposition home or self-care (01) ==
PROVIDERS: Emergency Provider Registered Nurse; PCP Family Medicine
DX: R10.9 Unspecified abdominal pain (principal); R35.0 Frequency of micturition; Z87.891 Personal history of nicotine dependence; N80.9 Endometriosis, unspecified; L40.50 Arthropathic psoriasis, unspecified
CPT/HCPCS: 81003; 99213; G0463

== ENCOUNTER 2022-06-13 00:49 | Day surgery (SDC) | payer BC, SELFPAY ==
--- NOTE | 2022-06-12 11:57 | PC.NURSE ---
Report to the Outpatient Waiting Room, entrance under the green pavilion located off [facility], at time 10am on date 06/13/22. OR Time: 1200 - You and your visitor will be asked a series of questions to screen for COVID 19 for your protection. - Only one visitor is allowed at this time. - The patient visitor is requested to leave or wait in car when not with patient. - A mask is required within the hospital. Patients may have clear liquids (water, carbonated beverages, clear teas, apple juice) until 3 hours prior to surgery with a maximum of 20 ounces. - No food from midnight until time of surgery - Infants may have breast milk until 4 hours before surgery, infant formula 6 hours prior to surgery. - Children will be allowed to drink immediately following surgery. If applicable, please bring a bottle or sippy cup to assist with drinking. Juice, water, soda, and popsicles are readily available. For infants on formula, please bring formula the day of surgery. Pacifiers are allowed. Take the following medications with a SIP of water the morning of surgery: thyroid and pain pill if needed Medications to discontinue per physician __NA____ Date to take last dose Please no make-up, nail trinidadian, hairspray, perfume, deodorant, or body powder the day of surgery. No jewelry (including any body piercings) or valuables the day of surgery, leave them at home. Please take a shower or bath the night before, or the morning of, surgery with an antibacterial soap. Wear comfortable, loose fitting clothing. Children are encouraged to wear pajamas. - Jewelry must be removed prior to entering the operating room. Rings and piercings that are not removed may be cut off. - The hospital will not accept responsibility for valuables. - Please leave all valuables, including medications, at home the day of surgery. If you are going home after surgery, a licensed dump truck driver must drive you home. - NO public transportation without another adult. - We recommend that an adult stay with you for 24 hours following discharge. - We also recommend that you do not drive, make important decision, drink alcoholic beverages, or take any drugs that were not prescribed by your health care provider for at least 24 hours after your discharge time. For Pediatric surgeries, we recommend two adults accompany the child home (only one inside the building at this time). Follow any additional instructions given to you from your surgeon. If you or anyone in your household have experienced Covid symptoms in the past week, please notify your surgeon or the nurse liaison at the phone number below for possible testing. Telephone instructions given to _patient Rosemary __and asked if any additional questions and then verbalized understanding. Patient advised to call surgeon office or pre surgery nurse liaison [phone] if any additional questions.
[2022-06-12 12:03] VITALS: BMI 24.5
--- NOTE | 2022-06-12 16:21 | PM.IMHP ---
H&P: HPI History of Present Illness Date/Time: 06/12/22 16:21 Chief Complaint: Pelvic pain and right cyst Narrative: 41 female status post left salpingo-oophorectomy admitted for laparoscopic right cystectomy possible right salpingo-oophorectomy. The patient has been seen by Dr. Bee for many years. She has some severe right-sided pain and went to the ER at [facility]. There was a large complex cyst noted. Her pain has been unrelenting. She will undergo a laparoscopic right cystectomy possible right salpingo-oophorectomy. She understands this ovary is unable to be saved that she will be postmenopausal and reviewed psychologic and physiologic changes that occur with that in great detail. She read the [employer] handout entitled laparoscopy. She had all questions answered. 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 Uterine ablation 2016 Psoriatic arthritis Surgical History Surgical History History of orthopedic surgery L5-S1 fusion failed 06/2016, revision of L5-S1 fusion surgery 10/2017 Hx of oophorectomy 2010 Hx of spinal fusion L5-s1 in 10/2017 Family History Family History Other Diabetes mellitus Heart disease Social History Social History Social History: used to smoke 1pack Smoking status: Former smoker Tobacco type: e-cigarettes/vaping Second hand tobacco smoke exposure: Yes Substance use: never Substance use type: does not use Living arrangements: with family Gender identity (if verbalized by the patient): Female Sexual Orientation (if Verbalized by the Patient): Straight or Heterosexual Spiritual care concerns: No Meds Home Medications and Allergies Home Medications Medication Instructions Recorded Confirmed Type levothyroxine 100 mcg tablet 100 mcg PO DAILY 04/10/22 06/12/22 History tamsulosin 0.4 mg capsule (Flomax) 0.4 mg PO DAILY #14 caps 06/05/22 06/12/22 Rx hydrocodone 5 mg-acetaminophen 325 5 - 325 tablet PO Q4-6M PRN Pain 06/12/22 06/12/22 History mg tablet testosterone 200 mg implant pellet 200 mg subcut ONCE 06/12/22 06/12/22 History Allergies Allergy/AdvReac Type Severity Reaction Status Date / Time No Known Allergies Allergy Verified 06/12/22 11:41 Exam Const: General: cooperative and healthy appearing Nutritional Appearance: average body habitus Orientation/consciousness: oriented to person, oriented to place and oriented to time Chest: Chest palpation & inspection: normal inspection of the chest Resp: Effort & Inspection: normal respiratory effort Cardio: Rate: regular rate Rhythm: regular rhythm GI: Percussion: Yes normal to percussion Auscultation: normal bowel sounds : External Female Exam: normal external appearance Speculum Exam - Vagina: normal appearance of the vagina Speculum Exam - Cervix: normal appearance of the cervix Bimanual exam- vagina & uterus: Uterine tenderness Bimanual Exam- Adnexa, other: Adnexal mass present on the right tender Assessment and Plan Assessment and plan (1) Complex cyst of right ovary: Code(s): N83.291 - Other ovarian cyst, right side Status: Acute Plan Laparoscopic right cystectomy with possible right salpingo-oophorectomy
[2022-06-13] VITALS (8 sets, daily range): BP systolic 94–106; BP diastolic 53–65; PULSE 44–65; RESP 10–16; TEMP 36.2–36.6; O2SAT 99–100
--- NOTE | 2022-06-13 06:32 | WPDHPUPDATE1 ---
History and Physical Update Update Date/Time: 06/13/22 06:32 History and Physical has been reviewed, including an updated exam of the patient. There are NO changes in the patient's condition. Risks, benefits, and alternatives have been discussed and questions answered. Patient agrees to proceed with procedure.
[2022-06-13] MEDS: ACETAMINOPHEN 500 MG TABLET 1000 MG PO (10:13)
[2022-06-13] MEDS: LACTATED RINGERS 1,000 ML 30 ML IV CONT ×2 (10:40→13:17)
[2022-06-13] MEDS: KETOROLAC 15 MG/ML VIAL (*BKC) IV PUSH (10:41)
--- NOTE | 2022-06-13 10:53 | WPDANESEPPF ---
Anes - Initial Pre Proc Eval Procedure: Operation Date: 06/13/22 12:00 Proposed Procedures p Laparoscopic Right Ovarian Cystectomy, Possible Right Salpingo Oophorectomy - Vasquez Tucker MD Date/Time: 06/13/22 10:53 Surgeon: Vasquez Tucker MD Pre Op Diagnosis: right ovarian cyst, pain Patient Data Age: 41 Gender: F Height: 1.55 m Weight: 60.4 kg Last Vital Signs Temp 36.6 C 06/13/22 10:27 Pulse 54 L 06/13/22 10:27 Resp 16 06/13/22 10:27 BP 102/57 L 06/13/22 10:27 Pulse Ox 100 06/13/22 10:27 O2 Del Method Room Air 06/13/22 10:27 Allergies Allergy/AdvReac Type Severity Reaction Status Date / Time No Known Allergies Allergy Verified 06/13/22 10:09 Home Medications Medication Instructions Recorded Confirmed Type levothyroxine 100 mcg tablet 100 mcg PO DAILY 04/10/22 06/12/22 History tamsulosin 0.4 mg capsule (Flomax) 0.4 mg PO DAILY #14 caps 06/05/22 06/12/22 Rx hydrocodone 5 mg-acetaminophen 325 5 - 325 tablet PO Q4-6M PRN Pain 06/12/22 06/12/22 History mg tablet testosterone 200 mg implant pellet 200 mg subcut ONCE 06/12/22 06/12/22 History hydrocodone 5 mg-acetaminophen 325 1 tablet PO Q4H PRN pain #30 tabs 06/13/22 Rx mg tablet Patient hx anesthesia problems: post op nausea/vomiting Family hx anesthesia problems: none Results Review: All pre-operative results and documents have been reviewed as part of the pre-operative evaluation. 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 Uterine ablation 2017 Hypothyroid Psoriatic arthritis Surgical History Surgical History History of orthopedic surgery L5-S1 fusion failed 06/2016, revision of L5-S1 fusion surgery 10/2017 Hx of oophorectomy 2010 Hx of spinal fusion L5-s1 in 10/2017 Family History Family History Other Diabetes mellitus Heart disease Social History Social History Social History: used to smoke 1pack Smoking status: Former smoker Tobacco type: e-cigarettes/vaping Second hand tobacco smoke exposure: Yes Substance use: never Substance use type: does not use Living arrangements: with family Gender identity (if verbalized by the patient): Female Sexual Orientation (if Verbalized by the Patient): Straight or Heterosexual Spiritual care concerns: No Anes - Eval Final PreProcedure Day of Procedure 06/13/22 10:53 Patient weight: normal Heart: regular rate and rhythm Lungs: clear to auscultation Airway: Mallampati scale class II Neurological: alert and oriented Last oral intake: >/= 8 hours ASA classification: II Emergent: no Anesthetic plan: proceed Anesthesia type and monitoring: general ETT and standard monitoring Results Review: All pre-operative results and documents have been reviewed as part of the pre-operative evaluation. Informed Consent: The patient's anesthetic plan and its attendant risks and benefits were discussed with the patient/family/POA. Questions were solicited and answers provided to the satisfaction of the patient/family/POA.
--- NOTE | 2022-06-13 12:57 | W.PM.PROC2 ---
Procedure Note - Detailed Date of Procedure 06/13/22 Pre-op Diagnosis right ovarian cyst, pain Post-op Diagnosis Other (Torsion of right adnexa) Procedure Performed Laparoscopic RSO Surgeon Vasquez Tucker MD Anesthesia General Indications Is the 41-year-old female with a large complex right ovarian cyst and severe pelvic pain Findings Absent left ovary and tube. Normal-appearing uterus. Torsion of right adnexa Description of Procedure Patient was prepped draped in the normal sterile fashion placed in the dorsal lithotomy position. Under excellent general trach anesthesia weighted speculum placed in posterior fornix vagina. Anterior lip of the cervix grasped with single-tooth tenaculum. Mckeon's cannula inserted to be attached later for uterine manipulation. The weighted speculum was removed and the bladder was emptied of clear urine. Us infraumbilical incision was made. The 5mm trocar advanced in the abdomen after the Veress needle had filled the abdomen up to 15mm gas. This was done under direct visualization assuring no injury. The patient placed in Trendelenburg and a suprapubic incision made the 5mm trocar advanced under direct visualization assuring no injury. The above findings were seen there was a torsion of the right adnexa with discoloration of the ovary and tube. Decision was made for right salpingo-oophorectomy. A right lower quadrant incision made the 10mm trocar advanced under direct visualization assuring no injury the LigaSure was placed across the infundibulopelvic structure clamped burned cut this was then placed in an Endo-Catch and removed through the right lower quadrant incision. Irrigation was undertaken to clear no other abnormalities were seen the lower site removed after gas had been removed from the abdomen the upper site removed the incisions closed with 4-0 Monocryl and glue. The instruments removed from the vagina and the patient was awakened. All sponge, needle, instrument counts were correct. There were no immediate complications. Estimated Blood Loss 5 Drains No Packing No Pathology Yes Complications No immediate complications Condition Stable Disposition PACU
[2022-06-13] MEDS: fentaNYL CITRATE INJ (*CRX) 100 MCG/2 ML VIAL 25 MCG IV PUSH ×2 (14:06→14:09)
[2022-06-13] MEDS: oxyCODONE HCL (*CRX) 5 MG TAB IR PO (14:54)
== END 2022-06-13 15:28 | disposition home or self-care (01) ==
PROVIDERS: PCP Family Medicine; Visit Provider Obstetrics & Gynecology
PROC: (CPT 49320; principal; 2022-06-13 12:00)
DX: N83.291 Other ovarian cyst, right side (principal); N83.511 Torsion of right ovary and ovarian pedicle; Z98.1 Arthrodesis status; Z87.891 Personal history of nicotine dependence
CPT/HCPCS: 58661; 36415; 86850; 86900; 86901; 88305; A9270; J1100; J1170; J1885; J2250; J2405; J2704; J3010; J7120

== ENCOUNTER 2022-06-13 22:26 | Emergency (ER) | payer BC, SELFPAY ==
[2022-06-13 22:38] VITALS: BP 107/59; PULSE 61; RESP 16; TEMP 36.4; O2SAT 99
--- NOTE | 2022-06-13 23:17 | ED.FEMALEGU ---
HPI - Female Genitourinary General Chief complaint: Urogenital-Female <Meeta Hawk PA-C - Last Filed: 06/13/22 23:44> Stated complaint: bharathi <YANI Espana Last Filed: 06/13/22 23:44> Time Seen by Provider: 06/13/22 22:47 <YANI Espana Last Filed: 06/13/22 23:44> Source: patient <YANI Espana Last Filed: 06/13/22 23:44> Mode of arrival: ambulatory <YANI Espana Last Filed: 06/13/22 23:44> Limitations: no limitations <YANI Espana Last Filed: 06/13/22 23:44> History of Present Illness HPI Narrative: This is a 41 year old female that presents to the ER for urinary retention. Reports she had a right salpingo-oophorectomy today. She has been unable to urinate since surgery. She called her traffic recorder who prompted her to be seen in the ER. Denies fevers. <YANI Espana Last Filed: 06/13/22 23:44> Related Data Home medications: Home Medications Medication Instructions Recorded Confirmed levothyroxine 100 mcg tablet 100 mcg PO DAILY 04/10/22 06/12/22 hydrocodone 5 mg-acetaminophen 325 5 - 325 tablet PO Q4-6M PRN Pain 06/12/22 06/12/22 mg tablet testosterone 200 mg implant pellet 200 mg subcut ONCE 06/12/22 06/12/22 <YANI Espana Last Filed: 06/13/22 23:44> Allergies/Adverse reactions: Allergies Allergy/AdvReac Type Severity Reaction Status Date / Time No Known Allergies Allergy Verified 06/13/22 22:51 <YANI Espana Last Filed: 06/13/22 23:44> Review of Systems Review of Systems: CONSTITUTIONAL: Denies fever GASTROINTESTINAL: Reports abdominal pain. 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 Uterine ablation 2016 Hypothyroid Psoriatic arthritis <Meeta Hawk PA-C - Last Filed: 06/13/22 23:44> Surgical History Surgical History: Surgical History History of orthopedic surgery L5-S1 fusion failed 06/2016, revision of L5-S1 fusion surgery 10/2017 Hx of oophorectomy 2010 Hx of spinal fusion L5-s1 in 10/2017 <Meeta Hawk PA-C - Last Filed: 06/13/22 23:44> Family History Family History: Family History Other Diabetes mellitus Heart disease <Meeta Hawk PA-C - Last Filed: 06/13/22 23:44> Social History Social History: Social History Social History: used to smoke 1pack Smoking status: Former smoker Tobacco type: e-cigarettes/vaping Second hand tobacco smoke exposure: Yes Substance use: never Substance use type: does not use Gender identity (if verbalized by the patient): Female Sexual Orientation (if Verbalized by the Patient): Straight or Heterosexual Spiritual care concerns: No <YANI Espana Last Filed: 06/13/22 23:44> Exam Narrative: GENERAL: Well-appearing, well-nourished, and in no acute distress. HEAD: Normocephalic, atraumatic. EYES: EOMI. CHEST: Clear to auscultation. No respiratory distress. No wheezes rales or rhonchi HEART: Regular rate and rhythm. No murmur heard. Normal peripheral pulses. ABDOMEN: Soft, nondistended, normal active bowel sounds. Incisions are clean, dry, and intact. No erythema or abnormal drainage. Mild tenderness to palpation throughout the lower abdomen EXTREMITIES: Normal range of motion. No edema. SKIN: Warm, dry, no rash. NEURO: No focal deficits. Alert and oriented x3. PSYCH: Normal mood and affect <Meeta Hawk,
[2022-06-13 23:19] LABS: Appearance Urine Clear (Clear); Bilirubin Urine Negative (Negative); Blood Urine Negative (Negative); Color Urine Yellow (Yellow); Glucose Urine UA Trace mg/dL (Negative); Ketones Urine Negative (Negative); Leukocyte Esterase Ur Negative LEU/UL (Negative); Nitrate Urine Negative (Negative); Protein Urine Negative (Negative); Urobilinogen Urine 0.2 mg/dL (<2.0)
[2022-06-13 23:23] LABS: Mucus Urine Rare /lpf; Squamous Epithelial Cell Urine Rare /hpf (Few); WBC Urine 0-3 /hpf
[2022-06-13 23:27] LABS: Add Urine Microscopic? YES
== END 2022-06-13 23:52 | disposition home or self-care (01) ==
PROVIDERS: Physician Assistant; Emergency Provider Emergency Medicine; PCP Family Medicine
DX: R33.9 Retention of urine, unspecified (principal); Z98.890 Other specified postprocedural states; E03.9 Hypothyroidism, unspecified; L40.50 Arthropathic psoriasis, unspecified; Z98.1 Arthrodesis status; Z87.891 Personal history of nicotine dependence; Z90.79 Acquired absence of other genital organ(s); Z90.722 Acquired absence of ovaries, bilateral
CPT/HCPCS: 51702; 81001; 99283

== ENCOUNTER 2022-08-21 15:20 | Emergency (ER) | payer BC, SELFPAY ==
--- NOTE | ~2022-08-21 | CT_ITS ---
EXAMINATION: CT facial bones w con DATE: 08/21/2022 16:56 INDICATION: Facial swelling. TECHNIQUE: Computed tomography (CT) of the facial bones and maxillofacial region was performed with 7 5 mL Omnipaque 350 intravenous contrast. Automated exposure control and iterative reconstruction tech [employer] were employed. The dose-length product was 366.07 mGy-cm. COMPARISON: None. FINDINGS: The paranasal sinuses are clear. There is leftward deviation of the nasal septum. The masto id air cells are normal. The orbits are normal. There are no pathologically enlarged lymph nodes. IMPRESSION: 1. No etiology for the patient's symptoms. Reviewed, dictated and finalized at location A.
[2022-08-21 15:32] VITALS: BP 107/66; PULSE 79; RESP 20; TEMP 36.6; O2SAT 100
--- NOTE | 2022-08-21 15:42 | ED.GENADULT ---
HPI - General Adult General Chief complaint: Unspecified Stated complaint: facial swelling Time Seen by Provider: 08/21/22 15:42 Source: patient and family Mode of arrival: ambulatory Limitations: no limitations History of Present Illness HPI narrative: 42 years old white female drove herself to the emergency room complaining of facial swelling since August 18, 2022. Patient reports patient congestion, right ear ache, pressure feeling all over the face 10 days ago, was seen by urgent care 4 days ago and started on Augmentin. Patient been using poan-ala-oihsenn multiple, Claritin-D and nasal saline lavage without improvement, she is getting worse. She denies any fever, chills, nausea, vomiting. Patient vapes, does not drink or uses drugs. History of oophorectomy, on hormonal replacement Related Data Home Medications Medication Instructions Recorded Confirmed levothyroxine 100 mcg tablet 100 mcg PO DAILY 04/10/22 06/12/22 hydrocodone 5 mg-acetaminophen 325 5 - 325 tablet PO Q4-6M PRN Pain 06/12/22 06/12/22 mg tablet testosterone 200 mg implant pellet 200 mg subcut ONCE 06/12/22 06/12/22 Allergies Allergy/AdvReac Type Severity Reaction Status Date / Time No Known Allergies Allergy Verified 08/21/22 15:40 Review of Systems Review of Systems: 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 Uterine ablation 2016 Hypothyroid Psoriatic arthritis Surgical History Surgical History History of orthopedic surgery L5-S1 fusion failed 06/2016, revision of L5-S1 fusion surgery 10/2017 Hx of oophorectomy 2010 Hx of spinal fusion L5-s1 in 10/2017 Family History Family History Other Diabetes mellitus Heart disease Social History Social History Social History: used to smoke 1pack Smoking status: Former smoker Tobacco type: e-cigarettes/vaping Second hand tobacco smoke exposure: Yes Substance use: never Substance use type: does not use Gender identity (if verbalized by the patient): Female Sexual Orientation (if Verbalized by the Patient): Straight or Heterosexual Spiritual care concerns: No Exam Narrative: General appearance: Well-developed, well-nourished Skin: Normal color Head: Normocephalic, nontraumatic Eyes: Clear conjunctiva slight lower eyelid edema ENT: Diffuse tenderness of the face bilaterally mainly right maxillary area, slightly swelling Neck: Supple, nontender Chest and respiratory: Airway patent, no respiratory distress, no accessory muscle use Heart: Regular rate/rhythm Neurologic: Alert and oriented ?3, [employer] is normal as tested, no gross motor deficit Course Vital Signs Vital signs: Vital Signs Temperature 36.6 C 08/21/22 15:32 Pulse Rate 79 08/21/22 15:32 Respiratory Rate 20 08/21/22 15:32 Blood Pressure 107/66 08/21/22 15:32 Pulse Oximetry 100 08/21/22 15:32 Oxygen Delivery Room Air 08/21/22 15:32 Temperature 36.6 C 08/21/22 15:32 Pulse Rate 79 08/21/22 15:32 Respiratory Rate 20 08/21/22 15:32 Blood Pressure 107/66 08/21/22 15:32 Pulse Oximetry 100 08/21/22 15:32 Oxygen Delivery Room Air 08/21/22 15:32 Medical Decision Making Vital Signs Vital Signs: Vital Signs Temperature 36.6 C 08/21/22 15:32 Pulse Rate 79 08/21/22 15:32 Respirato
[2022-08-21 16:21] LABS: Basophils Absolute Auto 0.1 K/mm3 (0.0-0.1); Basophils Percent Auto 0.8 % (0.2-1.2); Eosinophils Absolute Auto 0.4 K/mm3 (0-0.3); Eosinophils Percent Auto 4.8 % (0-4.4); Hematocrit 42.6 % (37.0-47.0); Immature Granulocyte Absolute 0.03 K/mm3 (0.00-0.031); Immature Granulocyte Percent A 0.4 % (0-0.5); Lymphocytes Absolute Auto 1.77 K/mm3 (0.9-3.2); Lymphocytes Percent Auto 24.1 % (18.3-44.2); Mean Corpuscular HGB Conc 32.9 g/dl (32-36); Mean Corpuscular Hemoglobin 29.9 pg (26-34); Mean Platelet Volume 9.6 fl (7.4-10.4); Monocytes Absolute Auto 0.8 K/mm3 (0.1-0.6); Monocytes Percent Auto 10.2 % (2.6-8.5); Neutrophils Absolute Auto 4.4 K/mm3 (1.3-6.7); Neutrophils Percent Auto 59.7 % (45.5-73.1); Platelet Count Result 315 k/mm3 (150-375); Red Blood Count 4.68 M/mm3 (4.2-5.4); Red Cell Distribution Width 12.5 % (11.5-14.5); White Blood Count 7.3 K/mm3 (4.5-10.0)
[2022-08-21 16:32] LABS: Alanine Aminotransferase 25 U/L (6-35); Albumin Level 4.2 g/dL (3.5-5.1); Alkaline Phosphatase 100 U/L (38-126); Anion Gap 9 mmol/L (8-16); Aspartate Amino Transferase 32 U/L (14-36); Bilirubin,Total 0.3 mg/dL (0.2-1.3); Blood Urea Nitrogen 7 mg/dL (7-17); Calcium 9.1 mg/dL (8.4-10.2); Carbon Dioxide 29 mmol/L (22-30); Chloride 105 mmol/L (98-107); Estimated CRCL calculation 70 ml/min; Estimated Glomerular Filt Rate > 60; Glucose 89 mg/dL (65-110); Potassium 4.6 mmol/L (3.4-5.0); Sodium 143 mmol/L (137-145)
== END 2022-08-21 17:35 | disposition home or self-care (01) ==
PROVIDERS: Emergency Provider Emergency Medicine; PCP Family Medicine
DX: R09.81 Nasal congestion (principal); R60.9 Edema, unspecified
CPT/HCPCS: 36415; 70487; 80053; 85025; 99284; Q9967